=== PATIENT | male | born 1950 | race Caucasian/White ===

== ENCOUNTER 2020-03-14 12:35 | Emergency (ER) | payer MEDICARE, OTHER ==
[2020-03-14 12:44] VITALS: BP 149/86
[2020-03-14] MEDS ORDERED: ROPIVACAINE 0.5% PF 20 ML AMPULE SUBQ STA (13:44)
[2020-03-14] MEDS ORDERED: TETANUS/DIPHTHERIA/PERTUSSIS 0.5 ML SYRINGE IM ONE (13:44)
--- NOTE | 2020-03-14 13:48 | XRAY Report ---
PROCEDURE: Finger(s) RT INDICATIONS: Trauma TECHNIQUE: AP hand, 2 views of the third finger(s) acquired. COMPARISON: None FINDINGS: Bones: No fractures or dislocations. No suspicious bony lesions. 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 Soft tissues: No suspicious soft tissue calcifications. Distal aspect third digit soft tissue lacer ation. IMPRESSION: No evidence acute bony abnormality of the right third digit. Degenerative arthritis. Reviewed by: Shine Gonzalez MD on 03/14/2020 12:47 PM ALIREZA Approved by: Shine Gonzalez MD on 03/14/2020 12:47 PM ALIREZA Station ID: [id number]
--- NOTE | 2020-03-14 13:48 | ED Physician Documentation ---
PD HPI UPPER EXT INJURY - Stated complaint Stated Complaint: R FINGER LAC - Chief complaint Chief Complaint: Laceration - History obtained from History obtained from: Patient - History of Present Illness Location: Right, Finger (Third digit) Type of injury: Laceration Where injury occurred: Home Timing - onset: Today Timing - duration: Hours (1) Pain level max: 5 Pain level now: 3 Improved by: Rest Worsened by: Moving, Palpating Associated symptoms: No: Weakness, Numbness, Tingling Recently seen: Not recently seen - Additonal information Additional information: Patient with a laceration to the left third digit from a table saw. Tetanus not up-to-date. Review of Systems Neurologic: denies: Focal weakness, Numbness PD PAST MEDICAL HISTORY - Past Surgical History Past Surgical History: No - Present Medications Home Medications: Ambulatory Orders Medication Instructions Recorded Confirmed Cephalexin [Keflex] 500 mg PO Q6H #28 capsule 03/14/20 - Social History Does the pt smoke?: No Smoking Status: Never smoker Does the pt have substance abuse?: No - Family History Family history: reports: Non contributory - Immunizations Immunizations: TDAP >10years/unknown PD ED PE NORMAL - Vitals Vital signs reviewed: Yes - General General: Alert and oriented X 3, No acute distress - HEENT HEENT: Moist mucous membranes - Neck Neck: Supple, no meningeal sign - Derm Derm: Warm and dry - Extremities Extremities: Other (L hand 3rd digit - Laceration to the distal aspect of the third digit. There is approximately half of the nail missing with some subcutaneous tissue. Neurovascular intact.) - Neuro Neuro: Alert and oriented X 3 Results - Vitals Vitals: Vital Signs - 24 hr 03/14/20 12:38 Temperature 36.2 C L Heart Rate 91 Respiratory 18 Rate Blood Pressure 149/86 H O2 Saturation 97 Oxygen O2 Source Room air - Rads (name of study) Left hand x-ray Radiology: Prelim report reviewed, EMP read contemporaneously, See rad report (No acute abnormality) Procedures - Laceration (location) Left 3rd digit laceration Length in cm: 2 Wound type: Stellate, Irregular, Into subcut fat, Clean Neurovascular status: Sensory intact, Motor intact, Vascular intact Tendon involvement: Tendon intact Anesthesia: OTH (Ropivacaine 0.5% digital block) Wound Preparation: Irrigated copiously NS, Wound explored, To the base Skin layer closure: Nylon Other: Patient tolerated well, No complications, Neurovascular intact, Dressing applied, Tetanus booster given Complexity: Simple PD MEDICAL DECISION MAKING - ED course Complexity details: reviewed results, re-evaluated patient, considered differential, d/w patient, d/w family ED course: The tip of the finger was closed with nylon sutures. The area of the missing nail with missing subcutaneous tissue was left open and will heal by secondary intention. Covered with Xeroform. He will follow-up closely with orthopedics. There is no exposed bone. Will place on Keflex. Tetanus given. Patient counseled regarding signs and symptoms for which I believe and urgent re- evaluation would be necessary. Patient with good understanding of and agreement to plan and is comfortable going home at this time This document was made in part using voice recognition software. While efforts are made to proofread this document, sound alike and grammatical errors may occur. Departure - Departure Disposition: 01 Home, Self Care Clinical Impression: Finger laceration Qualifiers: Encounter type: initial encounter Finger: middle finger Damage to nail status: with damage Foreign body presence: without foreign body Laterality: right Qualified Code(s): S61.312A - Laceration without foreign body of right middle finger with damage to nail, initial encounter Condition: Good Instructions: ED Laceration Hand Follow-Up: [facility] [Provider Group] - Within 1 week Prescriptions: Cephalexin [Keflex] 500 mg PO Q6H #28 capsule Comments: Follow-up with orthopedics in 3 to 4 days for a wound check. You should have the sutures removed in approximately 10 days. Return if you worsen. Call Monday for an appointment with orthopedics. Take all antibiotics until gone Discharge Date/Time: 03/14/20 14:37
[2020-03-14] MEDS ORDERED: cephALEXin 250 MG CAPSULE PO STA (14:26)
== END 2020-03-14 14:37 | disposition home or self-care (01) ==
LOC: ED 12:35
DX: S61.312A Laceration without foreign body of right middle finger with damage to nail, initial encounter (principal); W31.2XXA Contact with powered woodworking and forming machines, initial encounter; Y93.89 Activity, other specified; Y92.009 Unspecified place in unspecified non-institutional (private) residence as the place of occurrence of the external cause; Z23 Encounter for immunization
CPT/HCPCS: 12001; 73140; 90471; 90715; 99282; 99283; A9270

== ENCOUNTER 2020-12-22 | Outpatient (CLI) | payer MEDICARE, OTHER | END 2020-12-22 03:01 | disposition critical access hospital (66) | CPT/HCPCS: A0425; A0427 ==

== ENCOUNTER 2020-12-22 03:12 | Emergency (ER) | payer MEDICARE, OTHER ==
[2020-12-22 03:37] LABS: BASOPHILS # (AUTO) 0.1 10^3/uL (0.0-0.1); BASOPHILS % (AUTO) 0.6 %; EOSINOPHILS # (AUTO) 0.2 10^3/uL (0.0-0.7); EOSINOPHILS % (AUTO) 2.7 %; HCT - HEMATOCRIT 44.6 % (42.0-52.0); HGB - HEMOGLOBIN 15.1 g/dL (14.0-18.0); LYMPHOCYTES # (AUTO) 1.7 10^3/uL (1.5-3.5); LYMPHOCYTES % (AUTO) 19.3 %; MEAN CORPUSCULAR HEMOGLOBIN 30.3 pg (27.0-31.0); MEAN CORPUSCULAR HGB CONC 33.9 g/dL (32.0-36.0); MEAN CORPUSCULAR VOLUME 89.4 fL (80.0-94.0); MEAN PLATELET VOLUME 10.2 fL (7.4-11.4); MONOCYTES # (AUTO) 0.6 10^3/uL (0.0-1.0); NEUTROPHILS # (AUTO) 6.3 10^3/uL (1.5-6.6); PLT - PLATELET COUNT 163 10^3/uL (130-450); RED BLOOD COUNT 4.99 10^6/uL (4.70-6.10); RED CELL DISTRIBUTION WIDTH 12.6 % (12.0-15.0)
[2020-12-22 03:54] LABS: ALBUMIN 4.6 g/dL (3.2-5.5); ALBUMIN/GLOBULIN RATIO 1.7 (1.0-2.2); BILIRUBIN,TOTAL 0.5 mg/dL (0.2-1.0); CALCIUM 9.3 mg/dL (8.5-10.3); CREATININE 1.1 mg/dL (0.6-1.2); POTASSIUM 3.8 mmol/L (3.5-5.0); TOTAL PROTEIN 7.3 g/dL (6.7-8.2)
--- NOTE | 2020-12-22 04:56 | ED Physician Documentation ---
History of Present Illness - Stated complaint Stated Complaint: DIZZY/ NAUSEA/ FATIGUE - Chief complaint Chief Complaint: Neuro - History obtained from History obtained from: Patient - History of Present Illness Timing: Enter time (00:30), Today Pain level max: 0 Pain level now: 0 Improved by: rest Worsened by: ambulating, turning head - Additonal information Additional information: BIBA. patient says that at approximately 12:30 AM this morning, while at home at rest, he had sudden onset of dizziness which he describes as sensation of room spinning. The symptoms were worse when he stood and tried to ambulate. He says he had to hold onto the villalpando when walking in order to prevent falling. He has had nausea and vomiting with the dizziness. Denies history of similar symptoms. Denies weakness, numbness, visual changes, headache. Review of Systems Constitutional: reports: Reviewed and negative Eyes: reports: Reviewed and negative Ears: reports: Reviewed and negative Nose: reports: Reviewed and negative Cardiac: reports: Reviewed and negative Respiratory: reports: Reviewed and negative GI: reports: Nausea, Vomiting. denies: Abdominal Pain Neurologic: denies: Generalized weakness, Focal weakness, Numbness, Headache PD PAST MEDICAL HISTORY - Past Medical History Past Medical History: Yes Cardiovascular: Hypertension, High cholesterol - Past Surgical History Past Surgical History: No - Present Medications Home Medications: Ambulatory Orders Medication Instructions Recorded Confirmed Atorvastatin [Lipitor] 20 mg PO DAILY 12/22/20 12/22/20 Bicalutamide [Casodex] 50 mg PO DAILY 12/22/20 12/22/20 Meclizine HCl [Antivert] 1 tablet PO Q6H PRN #30 tab 12/22/20 Omeprazole 40 mg PO DAILY 12/22/20 12/22/20 Sertraline [Zoloft] 50 mg PO DAILY 12/22/20 12/22/20 Tamsulosin [Flomax] 0.4 mg PO DAILY 12/22/20 12/22/20 amLODIPine [Norvasc] 10 mg PO DAILY 12/22/20 12/22/20 cloNIDine [Catapres] 0.2 mg PO DAILY 12/22/20 12/22/20 diazePAM [Valium] 5 mg PO TID PRN #15 tablet 12/22/20 - Allergies Allergies/Adverse Reactions: Allergies Allergy/AdvReac Type Severity Reaction Status Date / Time No Known Drug Allergies Allergy Verified 12/22/20 03:22 - Social History Does the pt smoke?: No Smoking Status: Never smoker Does the pt have substance abuse?: No - Immunizations Immunizations: TDAP >10years/unknown PD ED PE NORMAL - Vitals Vital signs reviewed: Yes - General General: Alert and oriented X 3, No acute distress, Well developed/nourished - HEENT HEENT: PERRL, EOMI, Moist mucous membranes - Neck Neck: Supple, no meningeal sign - Cardiac Cardiac: RRR - Respiratory Respiratory: No respiratory distress, Clear bilaterally - Abdomen Abdomen: Soft, Non tender - Derm Derm: Normal color, Warm and dry - Neuro Neuro: Alert and oriented X 3, 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, No motor deficit, No sensory deficit, Normal speech, Other (intention tremor (patient says this is chronic)) Eye Opening: Spontaneous Motor: Obeys Commands Verbal: Oriented GCS Score: 15 PD ED PE EXPANDED - Cardiac Cardiac: Murmur Present (2/6 SHIKHA at apex) - Neuro Neuro: Nystagmus (horizontal nystagmus with leftward gaze) Results - Vitals Vitals: Vital Signs - 24 hr 12/22/20 12/22/20 12/22/20 03:17 03:45 06:21 Temperature 36.1 C L 36.6 C 36.6 C Heart Rate 65 65 71 Respiratory 22 12 15 Rate Blood Pressure 151/97 H 148/92 H 145/94 H O2 Saturation 93 95 95 12/22/20 08:57 Temperature 36.7 C Heart Rate 88 Respiratory 14 Rate Blood Pressure 148/85 H O2 Saturation 99 Oxygen O2 Source Room air - Labs Labs: Laboratory Tests 12/22/20 12/22/20 12/22/20 03:32 03:32 03:32 WBC 9.0 RBC 4.99 Hgb 15.1 Hct 44.6 MCV 89.4 MCH 30.3 MCHC 33.9 RDW 12.6 Plt Count 163 MPV 10.2 Neut # (Auto) 6.3 Lymph # (Auto) 1.7 [place] # (Auto) 0.6 Eos # (Auto) 0.2 Baso # (Auto) 0.1 Absolute Nucleated RBC 0.00 Nucleated RBC % 0.0 Sodium 143 Potassium 3.8 Chloride 109 Carbon Dioxide 25 Anion Gap 9.0 BUN 28 H Creatinine 1.1 Estimated GFR (MDRD) 66 L Glucose 173 H Calcium 9.3 Total Bilirubin 0.5 AST 20 ALT 20 Alkaline Phosphatase 81 Troponin I High Sens 6.9 Total Protein 7.3 Albumin 4.6 Globulin 2.7 Albumin/Globulin Ratio 1.7 Lipase 34 PD MEDICAL DECISION MAKING - ED course Complexity details: reviewed results, re-evaluated patient, considered differential, d/w patient ED course: H+P c/w peripheral vertigo. no other neurologic c/o nor finding on exam to suggest alternative diagnosis including MOTOR RACER process (such as CVA, ICH). he did not feel improvement after IV fluids, meclizine, zofran, and valium. he was able to cautiously ambulate to/from bathroom. further emergent testing is not indicated at this time and although still symptomatic, inpatient stay is not indicated. he is discharged with prescriptions for meclizine and valium, encouraged to return if worse of new signs/symptoms develop (such as headache, slurred speech, numbness, weakness). Departure - Departure Disposition: 01 Home, Self Care Clinical Impression: Vertigo Condition: Good Instructions: Meclizine, ED Vertigo Unspecified Follow-Up: EDWIGE JULES MD [Primary Care Provider] - Prescriptions: Meclizine HCl [Antivert] 1 tablet PO Q6H PRN #30 tab PRN Reason: Vertigo diazePAM [Valium] 5 mg PO TID PRN #15 tablet PRN Reason: Dizziness Comments: Use the meclizine for the dizziness; you can add the diazepam if the meclizine is ineffective Discharge Date/Time: 12/22/20 09:07
[2020-12-22] MEDS ORDERED: MECLIZINE 12.5 MG TABLET PO STA (05:21)
[2020-12-22] MEDS ORDERED: SODIUM CHLORIDE 0.9% 1,000 ML IV STA (05:29)
[2020-12-22] MEDS ORDERED: diazePAM 5 MG TABLET PO STA (06:51)
[2020-12-22] MEDS ORDERED: ONDANSETRON 4 MG/2 ML VIAL IVP STA (06:59)
[2020-12-22 09:06] VITALS: BP 148/85
--- OUTSIDE RECORDS SUMMARY | 2020-12-23 03:19 | EXTERNAL MEDICAL SUMMARY RPT | Continuity of Care Document ---
:1950 Demographics Phone Unavailable Preferred Language Unknown Marital Status Unknown Buddhist Affiliation Unknown Race Unknown Ethnic Group Unknown Author Organization [facility] Address [address] [id number] Phone Social History date description facility [phone]
== END 2020-12-22 09:07 | disposition home or self-care (01) ==
LOC: EDUNIT# → ED 03:12
DX: R42 Dizziness and giddiness (principal); R11.2 Nausea with vomiting, unspecified; I48.91 Unspecified atrial fibrillation; I49.3 Ventricular premature depolarization; R01.1 Cardiac murmur, unspecified; I10 Essential (primary) hypertension
CPT/HCPCS: 36415; 80053; 83690; 84484; 85025; 93005; 96374; 99284; A9270

== ENCOUNTER 2022-12-16 09:51 | Outpatient (CLI) | payer MEDICARE, OTHER ==
[2022-12-16 10:17] LABS: ALBUMIN 3.9 g/dL (3.2-5.5); ALBUMIN/GLOBULIN RATIO 1.4 (1.0-2.2); BILIRUBIN,TOTAL 0.6 mg/dL (0.2-1.0); CALCIUM 9.1 mg/dL (8.5-10.3); CREATININE 1.1 mg/dL (0.6-1.2); POTASSIUM 4.4 mmol/L (3.5-5.0); TOTAL PROTEIN 6.6 g/dL (6.7-8.2)
[2022-12-16 10:18] LABS: BASOPHILS # (AUTO) 0.1 10^3/uL (0.0-0.1); BASOPHILS % (AUTO) 0.7 %; EOSINOPHILS # (AUTO) 0.2 10^3/uL (0.0-0.7); EOSINOPHILS % (AUTO) 3.1 %; HGB - HEMOGLOBIN 14.6 g/dL (14.0-18.0); LYMPHOCYTES # (AUTO) 1.6 10^3/uL (1.5-3.5); LYMPHOCYTES % (AUTO) 23.5 %; MEAN CORPUSCULAR HEMOGLOBIN 31.1 pg (27.0-31.0); MEAN CORPUSCULAR HGB CONC 33.2 g/dL (32.0-36.0); MEAN CORPUSCULAR VOLUME 93.8 fL (80.0-94.0); MEAN PLATELET VOLUME 10.3 fL (7.4-11.4); MONOCYTES # (AUTO) 0.6 10^3/uL (0.0-1.0); MONOCYTES % (AUTO) 8.4 %; NEUTROPHILS # (AUTO) 4.3 10^3/uL (1.5-6.6); NEUTROPHILS % (AUTO) 64.2 %; PLT - PLATELET COUNT 187 10^3/uL (130-450); RED BLOOD COUNT 4.69 10^6/uL (4.70-6.10); RED CELL DISTRIBUTION WIDTH 13.1 % (12.0-15.0); WHITE BLOOD COUNT 6.7 x10^3/uL (4.8-10.8)
== END 2022-12-16 09:52 | disposition home or self-care (01) ==
LOC: LAB 09:51
PROVIDERS: ATTEND Physician Assistant
DX: C61 Malignant neoplasm of prostate (principal)
CPT/HCPCS: 36415; 80053; 84153; 85025

== ENCOUNTER 2023-01-13 11:01 | Outpatient (CLI) | payer MEDICARE, OTHER | END 2023-01-13 11:02 | disposition home or self-care (01) | LOC: LAB 11:01 | PROVIDERS: ATTEND Urology | DX: C61 Malignant neoplasm of prostate (principal) | CPT/HCPCS: 36415; 84153 ==

== ENCOUNTER 2023-02-03 12:48 | Day surgery (SDC) | payer MEDICARE, OTHER ==
[2023-02-03] MEDS ORDERED: BUPIVACAINE 0.25% PF 30 ML VIAL ONE (13:11)
[2023-02-03] MEDS ORDERED: LIDOCAINE MPF 2%-EPI 1:200000 20 ML VIAL ONE (13:11)
[2023-02-03] MEDS ORDERED: LACTATED RINGERS 1,000 ML IV ONE ×2 (13:39→15:13)
--- NOTE | 2023-02-03 13:49 | ANESTHESIA ---
Pre-Anesthesia VS, & Labs - Diagnosis prostate cancer with bone mets - Procedure port placement Vital Signs: Temp Pulse Resp BP Pulse Ox O2 Flow Rate 36.7 C 101 H 16 127/91 H 98 02/03/23 13:03 02/03/23 13:03 02/03/23 13:03 02/03/23 13:03 02/03/23 13:03 Height: 5 ft 6 in Weight (kg): 77.7 kg Body Mass Index: 27.6 BMI Classification: Overweight - NPO >8 hours Home Medications and Allergies Home Medications: Ambulatory Orders Ca/D3/Mag Ox/Zinc/Parish Worker/Rajiv/Bor [Calcium 660-Q0-Yqamryat Chw Tb] 1 each PO DAILY 02/03/23 Cyanocobalamin [Vitamin B-12] 1 tab PO DAILY 02/03/23 Loperamide HCl [Imodium A-D] 1 tab PO PRN PRN 02/03/23 Atorvastatin [Lipitor] 20 mg PO DAILY 12/22/20 Omeprazole 40 mg PO DAILY 12/22/20 Sertraline [Zoloft] 50 mg PO DAILY 12/22/20 Tamsulosin [Flomax] 0.4 mg PO DAILY 12/22/20 amLODIPine [Norvasc] 10 mg PO DAILY 12/22/20 Apixaban [Eliquis] 5 mg PO DAILY 01/30/23 Diltiazem HCl [Diltiazem 12Hr ER] 120 mg PO DAILY 01/30/23 Lidocaine/Prilocain 2.5% Cream [Emla 2.5% Cream] 1 each TP PRN 01/30/23 Magnesium 250 mg PO DAILY 01/30/23 Metoprolol Succinate [Toprol Xl] 50 mg PO DAILY 01/30/23 Ondansetron Odt [Zofran Odt] 8 mg ORAL Q8HR PRN 01/30/23 Prednisone [Esther] 5 mg PO BID 01/30/23 Prochlorperazine Maleate [Compazine] 10 mg PO Q6HR PRN 01/30/23 Ca/D3/Mag Ox/Zinc/Parish Worker/Rajiv/Bor [Calcium 029-O0-Aktvvpqk Chw Tb] 1 each PO DAILY 02/03/23 Cyanocobalamin [Vitamin B-12] 1 tab PO DAILY 02/03/23 Loperamide HCl [Imodium A-D] 1 tab PO PRN PRN 02/03/23 Allergies/Adverse Reactions: Allergies Allergy/AdvReac Type Severity Reaction Status Date / Time No Known Drug Allergies Allergy Verified 02/02/23 14:05 Anes History & Medical History - Anesthetic History Anesthesia Complications: reports: No previous complications - Medical History Cardiovascular: reports: Hypertension, High cholesterol, Atrial fibrillation Pulmonary: reports: None Gastrointestinal: reports: GERD Urinary: reports: None Neuro: reports: None Musculoskeletal: reports: None Endocrine/Autoimmune: reports: None Blood Disorders: reports: None Skin: reports: None Smoking Status: Never smoker Psychosocial: reports: No issues indicated History of Cancer?: Yes - Surgical History General: reports: Appendectomy Gynecologic: reports: Other Orthopedic: reports: Knee replacement Exam General: Alert, Oriented x3, Cooperative, No acute distress Dental: WNL Mouth Openin Fingerbreadth Neck Mobility: Normal Mallampati classification: III Thyromental Distance: 4-6 cm Mental/Cognitive Status: Alert/Oriented X3, Normal for patient Plan Anesthesia Type: General, MAC Consent for Procedure(s) Verified and Reviewed: Yes Code Status: Attempt Resuscitation ASA classification: 3-Severe systemic disease Is this case an emergency?: No
[2023-02-03] MEDS ORDERED: fentaNYL 100 MCG/2 ML VIAL ONE (14:01)
[2023-02-03] MEDS ORDERED: MIDAZOLAM 2 MG/2 ML VIAL ONE (14:01)
[2023-02-03] MEDS ORDERED: PROPOFOL 500 MG/50 ML 500 MG/50 ML VIAL ONE (14:01)
--- NOTE | 2023-02-03 14:04 | HISTORY & PHYSICAL EXAMINATION ---
Chief Complaint - Chief Complaint Chief Complaint: here for chemotherapy port History of Present Illness - History Obtained From Records Reviewed: yes History obtained from: pt Exam Limitations: none - History of Present Illness HPI Comment/Other: metastatic prostate cancer History - Past Medical History Cardiovascular: reports: Hypertension, High cholesterol, Atrial fibrillation Respiratory: reports: None Neuro: reports: None Endocrine/Autoimmune: reports: None GI: reports: GERD : reports: None HEENT: reports: None Psych: reports: None Musculoskeletal: reports: None Derm: reports: None MRSA Hx?: No - Past Surgical History General: reports: Appendectomy Ortho: reports: Knee replacement /SEQUINS SPOOLER: reports: Other - POLST Patient has POLST: No Meds/Allgy - Home Medications Home Medications: Ambulatory Orders Medication Instructions Recorded Confirmed Atorvastatin [Lipitor] 20 mg PO DAILY 12/22/20 02/03/23 Omeprazole 40 mg PO DAILY 12/22/20 02/03/23 Sertraline [Zoloft] 50 mg PO DAILY 12/22/20 02/03/23 Tamsulosin [Flomax] 0.4 mg PO DAILY 12/22/20 02/03/23 amLODIPine [Norvasc] 10 mg PO DAILY 12/22/20 02/03/23 Apixaban [Eliquis] 5 mg PO DAILY 01/30/23 02/03/23 Diltiazem HCl [Diltiazem 12Hr ER] 120 mg PO DAILY 01/30/23 02/03/23 Lidocaine/Prilocain 2.5% Cream 1 each TP PRN 01/30/23 02/03/23 [Emla 2.5% Cream] Magnesium 250 mg PO DAILY 01/30/23 02/03/23 Metoprolol Succinate [Toprol Xl] 50 mg PO DAILY 01/30/23 02/03/23 Ondansetron Odt [Zofran Odt] 8 mg ORAL Q8HR PRN 01/30/23 02/03/23 Prednisone [Esther] 5 mg PO BID 01/30/23 02/03/23 Prochlorperazine Maleate 10 mg PO Q6HR PRN 01/30/23 02/03/23 [Compazine] Ca/D3/Mag Ox/Zinc/Steam Table Worker/Rajiv/Bor 1 each PO DAILY 02/03/23 02/03/23 [Calcium 156-F2-Svgtmgys Chw Tb] Cyanocobalamin [Vitamin B-12] 1 tab PO DAILY 02/03/23 02/03/23 Loperamide HCl [Imodium A-D] 1 tab PO PRN PRN 02/03/23 02/03/23 - Allergies Allergies/Adverse Reactions: Allergies Allergy/AdvReac Type Severity Reaction Status Date / Time No Known Drug Allergies Allergy Verified 02/02/23 14:05 Review of Systems - Other Findings Other Findings: 10 pt ros as above otherwise unremarkable Exam - Vital Signs Reviewed Vital Signs: Yes Vital Signs: Vital Signs x48h Temp Pulse Resp BP Pulse Ox 02/03/23 13:03 36.7 C 101 H 16 127/91 H 98 - Physical Exam General Appearance: positive: No acute distress, Alert Eyes Bilateral: positive: PERRL, EOMI ENT: positive: No signs of dehydration Neck: positive: No JVD, Trachea midline Respiratory: positive: No respiratory distress Cardiovascular: positive: Regular rate & rhythm Abdomen: positive: No distention Neurologic/Psychiatric: positive: Oriented x3 Conclusion/Plan - Problem List (1) Prostate cancer Conclusion/Plan: metastatic. chemotherapy in 2 days plan port placement. parq held and consent obtained
[2023-02-03] MEDS ORDERED: ceFAZolin 1 GM VIAL ONE (14:27)
[2023-02-03] MEDS ORDERED: LIDOCAINE MPF 2%-EPI 1:200000 20 ML VIAL SUBQ ONE ×2 (14:43)
[2023-02-03] MEDS ORDERED: BUPIVACAINE 0.25% PF 30 ML VIAL SUBQ ONE ×2 (14:47)
[2023-02-03] MEDS ORDERED: SODIUM CHLORIDE 0.9% 100 ML BAG IV ONE ×2 (14:49)
[2023-02-03] MEDS ORDERED: HYDROcod/ACETAM 5/325 MG TABLET PO PRN (15:10)
--- NOTE | 2023-02-03 15:14 | OPERATIVE REPORT ---
Operative Report - General Procedure Date: 02/03/23 Planned Procedure: left subclavian power port placement Pre-Op Diagnosis: metastatic prostate cancer Procedure Performed: left power port placement fluoroscopic guidance Post Op Diagnosis: same - Procedure Note Primary Surgeon: navin pena Anesthesia Technique: Local, MAC Estimated Blood Loss (mL): 2 Drain/Tube Type: Other (none) Indications: need for chemotherapy Findings: good flush and flow. tip at junction svc atrium Complications: none - Other Other Information/Narrative: The patient was properly identified brought to the operating room and placed in supine position. Monitored anesthesia care was given as well as IV sedation. A towel roll was placed under the upper back. The patient was prepped and draped in a sterile fashion and given preoperative antibiotics. Local anesthetic was given. The left subclavian vein was easily accessed first pass with a needle. Guide wire placed and position confirmed. A subcutaneous pocket on the left upper chest was created measuring approximately 2-1/2 cm. Portacatheter tubing was then placed subcutaneous up to the venous access point. The portacatheter tubing was then easily placed with the use of a dilator peel-away sheath. The tubing was aspirated and flushed with saline. Under fluoroscopic guidance the tubing was pulled back to the junction of the atrium and the superior vena cava. The portacatheter aspirated and flushed easily assuring good position. The portacatheter was then cut to size and further assembled. The port was secured to subcutaneous tissue with 2 interrupted 4-0 Prolene sutures. The port again was aspirated and flushed now with heparin. Buried interrupted subdermal 3-0 Vicryl sutures were then placed. Skin was closed with buried interrupted and running 4-0 Monocryl subcuticular suture. Dressing was applied. The patient tolerated the procedure well was awakened and brought to recovery in good condition.
--- NOTE | 2023-02-03 15:18 | ANESTHESIA POST OP EVALUATION ---
Anesthesia Post Eval - Post Anesthesia Eval Vitals: Last Vital Signs Temp 36.6 C 02/03/23 15:10 Pulse 101 H 02/03/23 15:10 Resp 16 02/03/23 15:10 BP 101/83 H 02/03/23 15:10 Pulse Ox 93 02/03/23 15:10 O2 Flow Rate CV Function Including HR & BP: Stable Pain Control: Satisfactory Nausea & Vomiting: Negative Mental Status: Baseline Respiratory Status: Airway Patent Hydration Status: Satisfactory Anesthesia Complications: None
--- NOTE | 2023-02-03 16:07 | XRAY Report ---
PROCEDURE: OR Port-A-Cath INDICATIONS: PORT-A-CATH PLACEMENT FLUORO TIME: 0.2 min TECHNIQUE: Real time fluoroscopy was performed of the thorax. COMPARISON: CXR 11/30/2015. FINDINGS: Left-sided central venous line with the catheter tip at the cavoatrial junction. IMPRESSION: Intraoperative guidance provided. Left-sided central venous line with the catheter tip at the cavoatrial junction. Reviewed by: Rocco Metzger MD on 02/03/2023 4:06 PM PDT Approved by: Rocco Metzger MD on 02/03/2023 4:06 PM PDT Station ID: [id number]
[2023-02-03 16:11] VITALS: BP 123/95
== END 2023-02-03 12:49 | disposition home or self-care (01) ==
LOC: SDS 12:48
PROVIDERS: ATTEND Surgery
DX: C61 Malignant neoplasm of prostate (principal); C79.51 Secondary malignant neoplasm of bone; I10 Essential (primary) hypertension
CPT/HCPCS: 36561; C1788; J7120

== ENCOUNTER 2023-03-08 10:46 | Emergency (ER) | payer MEDICARE, OTHER ==
--- OUTSIDE RECORDS SUMMARY | 2023-03-08 11:32 | EXTERNAL MEDICAL SUMMARY RPT | Continuity of Care Document ---
Author Name Unknown Address [address] [place] [id number] Phone Organization [facility] Address [address] [place] [phone] Phone Results/Labs test date author facility value unit interpretation Result panel 1 (unknown) (no date) (unknown) (unknown) (no value) (units unknown) (unknown) (unknown) (no date) (unknown) (unknown) 'eventually ab le to sleep' and then woke in the morning no longer feeling SOB. (units unknown) (unknown) (unknown) (no date) (unknown) (unknown) , (units unknown) (unknown) (unknown) (no date) (unknown) (unknown) 12/27/22 (units unknown) (unknown) (unknown) (no date) (unknown) (unknown) 10/10 1319 (units unknown) (unknown) (unknown) (no date) (unknown) (unknown) 13:20 (units unknown) (unknown) (unknown) (no date) (unknown) (unknown) [id number] (units unknown) (unknown) (unknown) (no date) (unknown) (unknown) Accompanied by : (units unknown) (unknown) (unknown) (no date) (unknown) (unknown) Age/Sex: 72 / M Date of Service: (units unknown) (unknown) (unknown) (no date) (unknown) (unknown) Attending Dr: Jojo Hilliard MD (units unknown) (unknown) (unknown) (no date) (unknown) (unknown) BP 142/100 H (units unknown) (unknown) (unknown) (no date) (unknown) (unknown) Blood Pressure Location Lt brachial (units unknown) (unknown) (unknown) (no date) (unknown) (unknown) : 9 Acct:[id number] (units unknown) (unknown) (unknown) (no date) (unknown) (unknown) Dept at . (units unknown) (unknown) (unknown) (no date) (unknown) (unknown) Documented By: Yaritza Hilliard MD 12/17 (units unknown) (unknown) (unknown) (no date) (unknown) (unknown) Draft (units unknown) (unknown) (unknown) (no date) (unknown) (unknown) Intake perform ed by: Estelle López (units unknown) (unknown) (unknown) (no date) (unknown) (unknown) Intake (units unknown) (unknown) (unknown) (no date) (unknown) (unknown) Intake- [facility] Staff (units unknown) (unknown) (unknown) (no date) (unknown) (unknown) [facility] (units unknown) (unknown) (unknown) (no date) (unknown) (unknown) Loc: [facility] (units unknown) (unknown) (unknown) (no date) (unknown) (unknown) Note (units unknown) (unknown) (unknown) (no date) (unknown) (unknown) Note: (units unknown) (unknown) (unknown) (no date) (unknown) (unknown) Nurse Office Visit ( units unknown) (unknown) (unknown) (no date) (unknown) (unknown) Oxygen Deliver y Method room air (units unknown) (unknown) (unknown) (no date) (unknown) (unknown) Patient comes into clinic for request for blood pressure to be taken, as he has (units unknown) (unknown) (unknown) (no date) (unknown) (unknown) Patient told h is of the event, and now they are here to get blood pressure (units unknown) (unknown) (unknown) (no date) (unknown) (unknown) Patient: Mingo Conrad MR#: [id number] (units unknown) (unknown) (unknown) (no date) (unknown) (unknown) Position Sitting (un its unknown) (unknown) (unknown) (no date) (unknown) (unknown) Pulse 111 H (units unknown) (unknown) (unknown) (no date) (unknown) (unknown) Pulse Oximetry (%) 98 (units unknown) (unknown) (unknown) (no date) (unknown) (unknown) Pulse Source Monitor (units unknown) (unknown) (unknown) (no date) (unknown) (unknown) Reason For Visit (un its unknown) (unknown) (unknown) (no date) (unknown) (unknown) Signed By: (units unknown) (unknown) (unknown) (no date) (unknown) (unknown) This note may have been all or partially generated using voice recognition (units unknown) (unknown) (unknown) (no date) (unknown) (unknown) Visit Reasons: BP Check, Blood pressure check (units unknown) (unknown) (unknown) (no date) (unknown) (unknown) Vitals (units unknown) (unknown) (unknown) (no date) (unknown) (unknown) breath, all ni ght' and could not 'catch his breath.' Patient states he was (units unknown) (unknown) (unknown) (no date) (unknown) (unknown) breath, patierin t needs to seek more advanced medical assessment and care. Medical (units unknown) (unknown) (unknown) (no date) (unknown) (unknown) checked. This RN recommended that patient call emergency medicine medical director to notify MD, and (units unknown) (unknown) (unknown) (no date) (unknown) (unknown) ferry ticket [place] to patient. (units unknown) (unknown) (unknown) (no date) (unknown) (unknown) have occurred. If there are any questions, please contact the Medical Records (units unknown) (unknown) (unknown) (no date) (unknown) (unknown) informed patie nt and , that when patient is feeling symptoms of shortness of (units unknown) (unknown) (unknown) (no date) (unknown) (unknown) may occur. Occasional wrong-word or 'sound-alike' substitutions may have (units unknown) (unknown) (unknown) (no date) (unknown) (unknown) occurred due t o the inherent limitations of voice recognition software. Please (units unknown) (unknown) (unknown) (no date) (unknown) (unknown) read the note carefully and recognize, using context, where these substitutions (units unknown) (unknown) (unknown) (no date) (unknown) (unknown) recently been put on Metoprolol for A-fib. Patient states that he was 'short of (units unknown) (unknown) (unknown) (no date) (unknown) (unknown) software. 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 (units unknown) (unknown) (unknown) (no date) (unknown) (unknown) , (units unknown) (unknown) (unknown) (no date) (unknown) (unknown) 12/27/22 (units unknown) (unknown) (unknown) (no date) (unknown) (unknown) 01/12/23 0727 (units unknown) (unknown) (unknown) (no date) (unknown) (unknown) 10/10 1319 (units unknown) (unknown) (unknown) (no date) (unknown) (unknown) 13:20 (units unknown) (unknown) (unknown) (no date) (unknown) (unknown) [id number] (units unknown) (unknown) (unknown) (no date) (unknown) (unknown) Accompanied by : (units unknown) (unknown) (unknown) (no date) (unknown) (unknown) Age/Sex: 72 / M Date of Service: (units unknown) (unknown) (unknown) (no date) (unknown) (unknown) Attending Dr: Jojo Hilliard MD (units unknown) (unknown) (unknown) (no date) (unknown) (unknown) BP 142/100 H (units unknown) (unknown) (unknown) (no date) (unknown) (unknown) Blood Pressure Location Lt brachial (units unknown) (unknown) (unknown) (no date) (unknown) (unknown) : 9 Acct:[id number] (units unknown) (unknown) (unknown) (no date) (unknown) (unknown) Dept at . (units unknown) (unknown) (unknown) (no date) (unknown) (unknown) Documented By: Yaritza Hilliard MD 12/17 (units unknown) (unknown) (unknown) (no date) (unknown) (unknown) Intake perform ed by: Maribel,Estelle (units unknown) (unknown) (unknown) (no date) (unknown) (unknown) Intake (units unknown) (unknown) (unknown) (no date) (unknown) (unknown) Intake- [facility] [facility] Staff (units unknown) (unknown) (unknown) (no date) (unknown) (unknown) [facility] (units unknown) (unknown) (unknown) (no date) (unknown) (unknown) Loc: [facility] (units unknown) (unknown) (unknown) (no date) (unknown) (unknown) Note (units unknown) (unknown) (unknown) (no date) (unknown) (unknown) Note: (units unknown) (unknown) (unknown) (no date) (unknown) (unknown) Nurse Office Visit ( units unknown) (unknown) (unknown) (no date) (unknown) (unknown) Oxygen Deliver y Method room air (units unknown) (unknown) (unknown) (no date) (unknown) (unknown) Patient comes into clinic for request for blood pressure to be taken, as he has (units unknown) (unknown) (unknown) (no date) (unknown) (unknown) Patient told h is of the event, and now they are here to get blood pressure (units unknown) (unknown) (unknown) (no date) (unknown) (unknown) Patient: Mingo Conrad MR#: [id number] (units unknown) (unknown) (unknown) (no date) (unknown) (unknown) Position Sitting (un its unknown) (unknown) (unknown) (no date) (unknown) (unknown) Pulse 111 H (units unknown) (unknown) (unknown) (no date) (unknown) (unknown) Pulse Oximetry (%) 98 (units unknown) (unknown) (unknown) (no date) (unknown) (unknown) Pulse Source Monitor (units unknown) (unknown) (unknown) (no date) (unknown) (unknown) Reason For Visit (un its unknown) (unknown) (unknown) (no date) (unknown) (unknown) Signed By: <Electronically signed by Jojo Hilliard MD> (units unknown) (unknown) (unknown) (no date) (unknown) (unknown) Signed (units unknown) (unknown) (unknown) (no date) (unknown) (unknown) This note may have been all or partially generated using voice recognition (units unknown) (unknown) (unknown) (no date) (unknown) (unknown) Visit Reasons: BP Check, Blood pressure check (units unknown) (unknown) (unknown) (no date) (unknown) (unknown) Vitals (units unknown) (unknown) (unknown) (no date) (unknown) (unknown) breath, all ni ght' and could not 'catch his breath.' Patient states he was (units unknown) (unknown) (unknown) (no date) (unknown) (unknown) breath, patierin t needs to seek more advanced medical assessment and care. Medical (units unknown) (unknown) (unknown) (no date) (unknown) (unknown) checked. This RN recommended that patient call emergency medicine medical director to notify MD, and (units unknown) (unknown) (unknown) (no date) (unknown) (unknown) ferry ticket [place] to patient. (units unknown) (unknown) (unknown) (no date) (unknown) (unknown) have occurred. If there are any questions, please contact the Medical Records (units unknown) (unknown) (unknown) (no date) (unknown) (unknown) informed patie nt and , that when patient is feeling symptoms of shortness of (units unknown) (unknown) (unknown) (no date) (unknown) (unknown) may occur. Occasional wrong-word or 'sound-alike' substitutions may have (units unknown) (unknown) (unknown) (no date) (unknown) (unknown) occurred due t o the inherent limitations of voice recognition software. Please (units unknown) (unknown) (unknown) (no date) (unknown) (unknown) read the note carefully and recognize, using context, where these substitutions (units unknown) (unknown) (unknown) (no date) (unknown) (unknown) recently been put on Metoprolol for A-fib. Patient states that he was 'short of (units unknown) (unknown) (unknown) (no date) (unknown) (unknown) software. 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
[2023-03-08] MEDS ORDERED: DEXAMETHASONE 10 MG/ML VIAL IM STA (11:50)
--- NOTE | 2023-03-08 11:51 | ED Physician Documentation ---
History of Present Illness - Stated complaint Stated Complaint: COUGH,FOOT PX - Chief complaint Chief Complaint: General - History obtained from History obtained from: Patient - Additonal information Additional information: The patient comes to the emergency department with chief complaint of productive cough and rash on feet after his second chemotherapy infusion 6 days ago. He is on chemo for metastatic prostate cancer and states that after the initial round of chemotherapy, he felt quite good after a few days of being tired. However, at some point since starting chemo, he began to develop a rash on his feet. He is not exactly sure when this started but thinks that at very least, it worsened around the time of his second infusion. He states the rash is painful and sometimes so painful that is hard for him to walk. He states that taking Tylenol helps a lot and makes it manageable. He has noticed redness of his bilateral soles with some peeling of skin. He also has some painful reddish- purple bumps along his arches. The rash has not spread anywhere else. He denies any fevers, chills, or body aches. He states that he otherwise feels fairly good other than being tired after chemo. His last infusion was 6 days ago and after that, he also noticed the onset of a cough which has been productive of a moderate amount of yellow sputum. He states that sometimes looks like pus. He denies any shortness of breath. The patient is otherwise fairly healthy. No other complaints at this time. 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: Other - Present Medications Home Medications: Ambulatory Orders Medication Instructions Recorded Confirmed Atorvastatin [Lipitor] 20 mg PO DAILY 12/22/20 02/27/23 Omeprazole 40 mg PO DAILY 12/22/20 02/27/23 Sertraline [Zoloft] 50 mg PO DAILY 12/22/20 02/27/23 Tamsulosin [Flomax] 0.4 mg PO DAILY 12/22/20 02/27/23 amLODIPine [Norvasc] 10 mg PO DAILY 12/22/20 02/27/23 Apixaban [Eliquis] 5 mg PO DAILY 01/30/23 02/27/23 Diltiazem HCl [Diltiazem 12Hr ER] 120 mg PO DAILY 01/30/23 02/27/23 Lidocaine/Prilocain 2.5% Cream 1 each TP PRN 01/30/23 02/27/23 [Emla 2.5% Cream] Magnesium 250 mg PO DAILY 01/30/23 02/27/23 Metoprolol Succinate [Toprol Xl] 50 mg PO DAILY 01/30/23 02/27/23 Ondansetron Odt [Zofran Odt] 8 mg ORAL Q8HR PRN 01/30/23 02/27/23 Prednisone [Esther] 5 mg PO BID 01/30/23 02/27/23 Prochlorperazine Maleate 10 mg PO Q6HR PRN 01/30/23 02/27/23 [Compazine] Ca/D3/Mag Ox/Zinc/Accounts Payable Associate/Rajiv/Bor 1 each PO DAILY 02/03/23 02/27/23 [Calcium 011-Y1-Bztoteag Chw Tb] Cyanocobalamin [Vitamin B-12] 1 tab PO DAILY 02/03/23 02/27/23 HYDROcod/ACETAM 5/325 [[place] 5/325] 1 each PO Q6H PRN #15 tablet 02/03/23 02/27/23 Loperamide HCl [Imodium A-D] 1 tab PO PRN PRN 02/03/23 02/27/23 Magic Mouthwash 30 ml PO DAILY 02/14/23 02/27/23 Azithromycin [Zithromax] 0 mg PO DAILY #6 tablet 03/08/23 predniSONE [Deltasone] 10 mg PO [id number] #42 tab 03/08/23 - Allergies Allergies/Adverse Reactions: Allergies Allergy/AdvReac Type Severity Reaction Status Date / Time No Known Drug Allergies Allergy Verified 03/08/23 10:49 - Social History Does the pt smoke?: No Smoking Status: Never smoker Does the pt drink ETOH?: No Does the pt have substance abuse?: No - Immunizations Immunizations are current?: Yes Immunizations: TDAP >10years/unknown - POLST Patient has POLST: No PD ED PE NORMAL - Vitals Vital signs reviewed: Yes - General General: Alert and oriented X 3, No acute distress, Well developed/nourished - HEENT HEENT: Atraumatic, PERRL, EOMI, Moist mucous membranes - Neck Neck: Supple, no meningeal sign - Cardiac Cardiac: RRR, No murmur, Strong equal pulses - Respiratory Respiratory: No respiratory distress, Clear bilaterally - Abdomen Abdomen: Soft, Non tender, Non distended - Derm Derm: Warm and dry, Other (Moderate erythema to bilateral plantar areas with Mild, superficial peeling of skin. Tender papules arising in the medial plantar areas and along the arches bilaterally. No fluctuance, induration, or edema. No pustules or vesicles. Complete sparing of remainder of feet, ankles, and legs.) - Extremities Extremities: No deformity, Other (No edema of either lower extremity.) - Neuro Neuro: Alert and oriented X 3, Other (Grossly intact) - Psych Psych: Normal mood, Normal affect Results - Vitals Vitals: Vital Signs - 24 hr 03/08/23 03/08/23 03/08/23 10:50 12:13 13:10 Temperature 36.5 C Heart Rate 100 70 Respiratory 16 17 17 Rate Blood Pressure 105/66 113/73 O2 Saturation 98 99 Oxygen O2 Source Room air - Labs Labs: Laboratory Tests 03/08/23 03/08/23 11:57 11:57 WBC 1.7 L* RBC 4.51 L Hgb 13.2 L Hct 41.2 L MCV 91.4 MCH 29.3 MCHC 32.0 RDW 14.8 Plt Count 155 MPV 10.6 Neut # (Auto) 0.3 L* Lymph # (Auto) 0.9 L [place] # (Auto) 0.5 Eos # (Auto) 0.0 Baso # (Auto) 0.0 Absolute Nucleated RBC 0.00 Nucleated RBC % 0.0 Manual Slide Review Indicated RBC Morph Micro Appear 2+ ANISOCYTOSIS Sodium 143 Potassium 4.0 Chloride 106 Carbon Dioxide 29 Anion Gap 8.0 BUN 27 H Creatinine 1.1 Estimated GFR (MDRD) 66 L Glucose 104 H Calcium 8.6 Total Bilirubin 0.6 AST 17 ALT 31 Alkaline Phosphatase 62 Total Protein 6.5 L Albumin 3.5 Globulin 3.0 Albumin/Globulin Ratio 1.2 Lipase 32 - Rads (name of study) Chest x-ray Relevant Findings:: Final report received, See rad report (Negative) PD Medical Decision Making - ED course Complexity details: reviewed results, re-evaluated patient, considered differential, d/w patient, d/w family ED course: I discussed with the patient and his that I suspect the rash on his soles is a medication reaction, most likely to the chemotherapy. However, I have advised the patient to speak with his oncologist about the particular chemotherapeutic agent he is on and see if this is a common side effect. The patient does not have any evidence of spread of the erythema on either side and the symmetry of findings and lack of associated symptoms makes the likelihood of infection very low. As far as his cough, the patient has clear lungs, but I will get a chest x-ray to further evaluate. This has been done and is negative. The patient's CBC, ordered and reviewed by me, shows a white blood cell count of 1.7, which is down from his most recent previous values. Absolute neutrophil count is 0.3. As such, I will place the patient on antibiotics for bronchitis. His ER abdominal panel shows normal LFTs and I discussed with him that it is fine to take Tylenol for the pain in his feet. I will also place him on a prednisone taper to try to help with his drug eruption. We have discussed the usual indications for return. Departure - Departure Disposition: 01 Home, Self Care Clinical Impression: Drug eruption, Bronchitis, Chemotherapy induced neutropenia Condition: Stable Instructions: ED Upper Resp Infec Abx Tx, ED Drug React Adverse Other Prescriptions: predniSONE [Deltasone] 10 mg PO [id number] #42 tab Azithromycin [Zithromax] 0 mg PO DAILY #6 tablet Comments: Your chest x-ray looks great. However, your white blood cell count has dropped very low, most likely as a result of your chemotherapy, with a white blood cell count of 1.7 and an absolute neutrophil count of 0.3. As such, we will go ahead and treat you with antibiotics for your productive cough. Prescription for this has been electronically transmitted to the [facility] pharmacy in [place], along with a prescription for your steroid taper. As far as the rash on the feet, this does appear to be a medication reaction or "drug eruption". This is most likely due to the chemotherapy, but you should talk to your oncologist about this as well. Please take the steroids as prescribed and then go back on your usual dose. Discharge Date/Time: 03/08/23 13:11
[2023-03-08 12:05] LABS: BASOPHILS % (AUTO) 1.7 %; EOSINOPHILS % (AUTO) 1.1 %; HCT - HEMATOCRIT 41.2 % (42.0-52.0); HGB - HEMOGLOBIN 13.2 g/dL (14.0-18.0); LYMPHOCYTES # (AUTO) 0.9 10^3/uL (1.5-3.5); LYMPHOCYTES % (AUTO) 50.6 %; MEAN CORPUSCULAR HEMOGLOBIN 29.3 pg (27.0-31.0); MEAN CORPUSCULAR VOLUME 91.4 fL (80.0-94.0); MEAN PLATELET VOLUME 10.6 fL (7.4-11.4); MONOCYTES # (AUTO) 0.5 10^3/uL (0.0-1.0); MONOCYTES % (AUTO) 25.9 %; PLT - PLATELET COUNT 155 10^3/uL (130-450); RED BLOOD COUNT 4.51 10^6/uL (4.70-6.10); RED CELL DISTRIBUTION WIDTH 14.8 % (12.0-15.0)
[2023-03-08 12:15] LABS: NEUTROPHILS # (AUTO) 0.3 10^3/uL (1.5-6.6); SLIDE REVIEW? Indicated; WHITE BLOOD COUNT 1.7 x10^3/uL (4.8-10.8)
[2023-03-08 12:16] LABS: ALBUMIN 3.5 g/dL (3.2-5.5); ALBUMIN/GLOBULIN RATIO 1.2 (1.0-2.2); BILIRUBIN,TOTAL 0.6 mg/dL (0.2-1.0); CALCIUM 8.6 mg/dL (8.5-10.3); CREATININE 1.1 mg/dL (0.6-1.2); TOTAL PROTEIN 6.5 g/dL (6.7-8.2)
[2023-03-08 12:18] VITALS: BP 113/73
[2023-03-08 12:30] LABS: RBC MORPHOLOGY (MULTIPLE) 2+ ANISOCYTOSIS (NORMAL)
--- NOTE | 2023-03-08 13:21 | XRAY Report ---
PROCEDURE: Chest 1 View X-Ray INDICATIONS: dyspnea TECHNIQUE: One view of the chest was acquired. COMPARISON: None. FINDINGS: Surgical changes and devices: Left-sided Port-A-Cath in place Lungs and pleura: No pleural effusions or pneumothorax. Lungs are clear. Mediastinum: Mediastinal contours appear normal. Heart size is normal. Bones and chest wall: No suspicious bony lesions. Overlying soft tissues appear unremarkable. IMPRESSION: No acute cardiopulmonary process. Reviewed by: Randy Jewell MD on 03/08/2023 12:20 PM AKDONNIE Approved by: Randy Jewell MD on 03/08/2023 12:20 PM AKDT Station ID: [id number]
== END 2023-03-08 13:11 | disposition home or self-care (01) ==
LOC: ED 10:46
DX: L27.0 Generalized skin eruption due to drugs and medicaments taken internally (principal); J40 Bronchitis, not specified as acute or chronic; D70.1 Agranulocytosis secondary to cancer chemotherapy; C61 Malignant neoplasm of prostate; T45.1X5A Adverse effect of antineoplastic and immunosuppressive drugs, initial encounter; C79.9 Secondary malignant neoplasm of unspecified site; I10 Essential (primary) hypertension; E78.00 Pure hypercholesterolemia, unspecified; I48.91 Unspecified atrial fibrillation; Z79.899 Other long term (current) drug therapy; Z79.01 Long term (current) use of anticoagulants
CPT/HCPCS: 36415; 80053; 83690; 85025; 96372; 99283; 99284